=== PATIENT | female | born 1980 | race Caucasian/White ===

== ENCOUNTER → 2020-03-23 | Outpatient (CLI) | payer BC ==
[~2020-03-23] MED LIST: ALBU2.5V8 IH; ALPR0.5T PO; BRAN1000 PO; LEXAPRO5 MG PO; LISI-338 PO; OXYC-325 PO
== END | disposition home or self-care (01) ==
LOC: LAB 14:29
PROVIDERS: ATTEND Surgery
DX: Z01.812 Encounter for preprocedural laboratory examination (principal); K64.8 Other hemorrhoids; Z20.828 Contact with and (suspected) exposure to other viral communicable diseases
CPT/HCPCS: U0003-CS

== ENCOUNTER 2020-03-27 11:21 | Day surgery (SDC) | payer BC ==
[~2020-03-27] VITALS: Ht 162.6 cm; Wt 87.0 kg
[~2020-03-27 11:21] MED LIST changes: +ACETAMINOPHEN 500 MG TABLET PO PRN; +HYDROmorphone 2 MG/ML VIAL IV PRN; +IV RINGERS,LACTATED 1000ML 1,000 ML IV SCH; +MORPHINE SULFATE 2 MG/ML VIAL. IV PRN; +ONDANSETRON PF 4 MG/2 ML VIAL. IV PRN; -OXYC-325 PO; +PROCHLORPERAZINE 10 MG/2 ML VIAL. IV PRN; +fentaNYL PF VIAL 100 MCG/2 ML VIAL IV PRN
[2020-03-27] MEDS ORDERED: MIDAZOLAM HCL/PF 2 MG/2 ML VIAL. ONE (11:28)
[2020-03-27] MEDS ORDERED: PROPOFOL 10 MG/ML (20ML) VIAL. IV ONE (11:28)
[2020-03-27] MEDS ORDERED: ONDANSETRON PF 4 MG/2 ML VIAL. ONE (11:28)
[2020-03-27] MEDS ORDERED: DEXAMETHASONE SOD PHOS 4 MG/ML VIAL ONE (11:28)
[2020-03-27] MEDS ORDERED: fentaNYL PF VIAL 100 MCG/2 ML VIAL ONE ×3 (11:28→13:47)
[2020-03-27] MEDS ORDERED: LIDOCAINE 2% PF 5 ML VIAL. ONE (11:28)
[2020-03-27] MEDS ORDERED: BUPIVACAINE-EPI 0.5%-1:200000 MPF 30 ML VIAL. ONE (12:38)
[2020-03-27] MEDS ORDERED: NEOMY/BACITR/POLYMYXIN OINT PACKET. TP ONE ×3 (12:39)
--- NOTE | 2020-03-27 13:32 | PDOC4 ---
Operative Note Operative Note Date: 2019 at 1330 Preoperative diagnosis: External/internal hemorrhoids Postoperative diagnosis: Same Procedure: Excision of external/internal hemorrhoid Surgeon: Niko Specimen: Internal/external hemorrhoids Dictation: Patient is a 39-year-old female is complained of rectal pain with external hemorrhoid as well as an internal hemorrhoid. Procedure of excision of hemorrhoids was explained to the patient detail was benefits were also discussed including bleeding infection alternatives to this procedure also discussed with the patient who seemed to understand and gave both verbal and written consent to have the procedure performed. Patient was taken to the operating room placed the supine position IV sedation was initiated once patient was sedated and asleep heard she was placed in lithotomy positioning her peritoneum was prepped and draped usual sterile fashion using Betadine scrub and solution. Area around the external/internal hemorrhoid were injected with quarter percent Marcaine with epinephrine. The external hemorrhoids were grabbed with an Allis clamp and excised using the harmonic scalpel this also included one internal hemorrhoid on the same side. Tissue was sent for specimen. The area was dressed with triple antibiotic ointment ABD and mesh panties were applied. Patient was awakened from her sedation taken to recovery in stable condition all sponge instrument needle counts listed as correct estimated blood loss 5 mL. PAUL PALMA MD Mar 27, 2020 13:32
--- NOTE | 2020-03-27 13:34 | DISCH ---
DISCHARGE INSTRUCTIONS Condition on Discharge Condition on Discharge: Stable Activity After Discharge Activity Instructions for Disc: Avoid exertion Diet after Discharge Diet after Discharge: Regular Wound Incision Care Other wound/incision instructi: May shower in 24 hours Contacting the after DC Call your doctor for: If your condition worsens Follow-Up Follow up with: Dr. Palma in 2 weeks PAUL PALMA MD Mar 27, 2020 13:34
[2020-03-27] MEDS: fentaNYL PF VIAL 100 MCG/2 ML VIAL IV PRN ×2 (13:55→14:05)
[2020-03-27] MEDS ORDERED: oxyCODONE/APAP 5/325 1 TAB TABLET ONE (14:35)
[2020-03-27] MEDS ORDERED: OXYC-325 PO (14:39)
[2020-03-27 14:40] VITALS: BP 131/60
[2020-03-27] MEDS ORDERED: oxyCODONE/APAP 5/325 1 TAB TABLET PO ONE ×3 (14:45→15:00)
--- NOTE | 2020-03-28 15:08 | PATHOLOGY ---
[facility] Accession Number: [id number] . 01 Material submitted: . hemorrhoids - INTERNAL EXTERNAL HEMORRHOID . 01 Clinical history: . HEMORRHOID . 02 Diagnosis: Segments of skin, external hemorrhoid excision: - Hemorrhoids. (JPM:[facility] 03/28/2020) [facility] 03/28/2020 1338 Local . 02 Electronically signed: . Bhanu Moore MD, Pathologist NPI- [id number] . 01 Gross description: . The specimen is received in formalin, labeled "Venessa Cristian, internal/external hemorrhoid". Received are three segments of epithelial covered tissue ranging in size from 0.9 x 0.5 x 0.3 to 2.8 x 1.1 x 0.7 cm in greatest dimensions. Sectioning reveals pink-red to slightly vascularized cut surfaces. No distinct nodules or lesions are noted grossly. The specimen is submitted representatively in cassette A1. ([facility]; 03/27/2020) QA/[facility] 03/27/2020 1706 Local . 02 Pathologist provided ICD-10: K64.4 . 02 CPT . 677419 Specimen Comment: A courtesy copy of this report has been sent to [phone], [phone] Specimen Comment: [id number] Specimen Comment: Report sent to / DR ARRINGTON [facility]formed [facility]: [facility] [address], [place] [id number] MD Carmelo Kelsey MD Phone: [phone] [facility]formed [facility]: [facility] [address], [place] [id number] MD Bhanu Moore MD Phone: [phone]
== END 2020-03-27 15:20 | disposition home or self-care (01) ==
LOC: SURG 11:21
PROVIDERS: ATTEND Surgery
DX: K64.8 Other hemorrhoids (principal); K64.4 Residual hemorrhoidal skin tags; F17.210 Nicotine dependence, cigarettes, uncomplicated; Z79.899 Other long term (current) drug therapy; Z98.890 Other specified postprocedural states
CPT/HCPCS: 46255; 81025; A7015; J0690; J1100; J2250; J2405; J2704; J3010; 88304; A4461